=== PATIENT | female | born 1985 | race Hispanic/Latino ===

== ENCOUNTER → 2024-03-23 15:07 | Outpatient (CLI) | payer OTHER, SELFPAY ==
--- NOTE | 2024-03-23 15:08 | DI.US.S_ITS ---
PROCEDURE: US PELVIC COMPLETE INDICATIONS: Prior diagnosis uterine fibroids, menorrhagia TECHNIQUE: Real-time scanning was performed of the pelvic organs, with image documentation. Additional endovaginal scanning declined by the patient. COMPARISON: None. FINDINGS: Uterus: Uterus is anteverted and normal in size at 11.2 x 4.8 x 7.6 cm. The myometrium is heterogenous. The endometrium measures 4 mm in combined thickness. Multiple shadowing fibroids are present, which limit image quality with transabdominal examination. Ovaries: Not identified on the transabdominal images Other: No pathologic free abdominal or pelvic fluid. IMPRESSION: Limited evaluation of the uterus and ovaries on this transabdominal-only exam. We strive to produce accurate, complete, and clear reports of imaging services. To assist us in improving patient care, this report was composed using standard report templates and voice recognition software. Therefore, it may contain abnormal punctuation, insertions and/or omissions. Occasional wrong-word or sound-alike substitutions may occur. Though we review the report and make efforts to correct it, we do recommend that the report be read carefully in proper context to recognize any text inaccuracies. Dictated by: Shola Pham M.D. on 03/23/2024 at 16:18 Approved by: Shola Pham M.D. on 03/23/2024 at 16:20
== END ==
PROVIDERS: Referring Provider Obstetrics & Gynecology; Visit Provider Obstetrics & Gynecology
DX: N92.0 Excessive and frequent menstruation with regular cycle (principal); D25.9 Leiomyoma of uterus, unspecified
CPT/HCPCS: 76856

== ENCOUNTER 2024-05-06 08:21 | Day surgery (SDC) | payer OTHER, SELFPAY ==
[2024-04-26 09:11] VITALS: BMI 24.7
[2024-05-06] VITALS (10 sets, daily range): BP systolic 95–134; BP diastolic 50–80; PULSE 82–97; RESP 11–18; TEMP 36.2–37.1; O2SAT 96–98; BMI 24.7; BMI 27.6
[2024-05-06] MEDS: ACETAMINOPHEN 325 MG TABLET 975 MG PO (08:48)
[2024-05-06] MEDS: SCOPOLAMINE 1 PATCH TOP (08:49)
[2024-05-06] MEDS: LACTATED RINGERS 1,000 ML 42 ML IV (08:49)
--- NOTE | 2024-05-06 14:57 | SUR.OPER ---
Lithotomy on padded OR bed. Seminary Pad Positioner under torso. Head on pillow, arms padded and tucked at sides. Legs secured in padded yellow fins stirrups.
--- NOTE | 2024-05-06 14:58 | PM.PREOP ---
Pre-operative Note COVID-19 COVID-19 status: Not tested Interval Note History & Physical reviewed/Exam performed by Physician: Yes Changes to H&P: No
[2024-05-06] MEDS: CEFAZOLIN 2 GM/100 ML PREMIX 100 ML IV (15:15)
[2024-05-06] MEDS: BUPIVACAINE 0.25% W/ EPI 30 ML VIAL INJ (17:00)
[2024-05-06] MEDS: fentaNYL 100 MCG/2 ML INJ IV (19:10)
--- NOTE | 2024-05-06 19:10 | P.OP_ITS ---
Operative Date/Time/Diagnoses Date of procedure: 05/06/24 Time of procedure: 15:30 Pre-op diagnosis: Menorrhagia Uterine fibroids Post-op diagnosis: other (RYAN, incidental cystotomy) Procedure & Clinicians Procedure: Procedures Operation Date: 05/06/24 09:45 Actual Procedure Side Surgeon p Laparoscopic Total Hysterectomy with bilateral salpingectomy Basim Driscoll MD Indications: Tatiana is a 38-year-old LMP 02/09/2024 who presents with progressively heavy menses and uterine fibroids which have been documented for at least the last 3 or 4 years. Her most recent ultrasound in [place] about 2 months ago showed that 1 of her fibroids measures 7 x 7 x 6 cm with a 2nd submucous myoma measuring 2-1/2 cm. Her cycles are currently 28 days apart but she bleeds for 7-14 days with each menses and is anemic despite iron supplementation twice daily. In addition she has severe cramping with her period and extreme fatigue during her period as well as headaches. She has had births. Her last Pap was in 2022 and was normal with all prior Paps normal as well. She has no desire for future childbearing. A more recent pelvic ultrasound performed 03/23/2024 shows: PROCEDURE: US PELVIC COMPLETE INDICATIONS: Prior diagnosis uterine fibroids, menorrhagia TECHNIQUE: Real-time scanning was performed of the pelvic organs, with image documentation. Additional endovaginal scanning declined by the patient. COMPARISON: None. FINDINGS: Uterus: Uterus is anteverted and normal in size at 11.2 x 4.8 x 7.6 cm. The myometrium is heterogenous. The endometrium measures 4 mm in combined thickness. Multiple shadowing fibroids are present, which limit image quality with transabdominal examination. Ovaries: Not identified on the transabdominal images Other: No pathologic free abdominal or pelvic fluid. IMPRESSION: Limited evaluation of the uterus and ovaries on this transabdominal-only exam. Endometrial sampling performed 03/16/2024 shows only early secretory changes with no atypia, hyperplasia, or neoplasia noted. After discussion regarding all options for treatment/management of her menorrhagia and uterine fibroids, she has decided to proceed with total laparoscopic hysterectomy and bilateral salpingectomy. She presents today for her scheduled surgery.. Surgeon: Basim Driscoll Research And Development Specialist: Pita Rashid Anesthesia Type: General Operative Notes Findings: The uterus is 12-14 weeks in size with a large posterior myoma. Fallopian tubes and ovaries appeared normal. In the anterior cul-de-sac there were dense adhesions from prior section. The bladder was densely adherent to the lower uterine segment and cervix. During attempts to dissect it off the lower uterine segment a small transverse cystotomy was noted and repaired after urologic consultation. The remainder of the abdomen and pelvis were normal to inspection. Closure Type: primary Specimen(s): none, left tube, right tube and uterus Applied: catheter Estimated blood loss (mL): 150 Blood products transfused: none Procedure in detail: With the patient in modified dorsal lithotomy position preparations were made by prepping and draping the patient in usual manner for vaginal surgery and insertion of Covarrubias catheter. A pre-surgical time-out was then taken in accordance with [facility] policy. A bivalve speculum was then placed in the vagina and the cervix visualized. The anterior lip of the cervix was then grasped with a single-tooth tenaculum. The uterus was sounded to 8 cm, the endocervical canal dilated slightly, and a [employer] uterine manipulator with a medium colpotomy cup was placed. The umbilicus was then infiltrated with 0.5% Marcaine with epinephrine. A 1 cm umbilical incision was made transversely and a Veress needle was used to insufflate the abdominal cavity with carbon dioxide. Once the abdomen was appropriately insufflated, a 5 mm trocar and sleeve were then placed through the umbilical incision. The scope was placed through the trocar and the initial assessment of the intra-abdominal contents carried out. A 2nd and 3rd 5 mm port was then placed 1st in the right mid quadrant from then the left mid quadrant by infiltration of the skin and subcutaneous tissues, a 1 cm transverse incision and insertion of the 5 mm bladeless port. Using a 3 puncture technique, the abdomen and pelvis were inspected laparoscopy and photographically documented. Uterus is mobilized with the [employer]Care manipulator and attention turned to the left adnexa. The distal tube was then grasped and the fimbria varicose divided after coagulation with the PowerSeal device. The dissection was then carried out toward the cornua and the fallopian tube amputated. The tube was removed through a 5 mm port and dissection was then carried down using the PowerSeal device so as to divide the utero-ovarian ligament and the round ligament with blunt and sharp dissection of the broad down to the level of the uterine artery. The uterine artery was then skeletonized after development of a bladder flap, coagulated, and divided. Once hemostasis was assured on the left side attention was turned to the right and the tube, utero-ovarian ligament, round ligament, and broad ligament were dissected in a fashion exactly the same as it had been on the left. The right uterine artery was then visualized after skeletonization and coagulated and divided. The bladder was densely adherent to the right side of the WINIFRED and cervix/WINIFRED. Dissection from lateral to medial on the right resulted in disruption of bladder mucosa as there was no muscularis between the mucosa and the underlying myometrium. Once the defect was identified, intra-op urology consultation ([facility]) obtained and repair plan confirmed. The cystotomy was then repaired with two layers of 3-0 vicryl interrupted sutures. Sterile saline leak test up to 150-200 cc was negative. The uterus was seen to nati after coagulation of both uterine arteries and the cup was identified through the vaginal muscularis at its insertion with the body of the cervix. Circumferential excision of the vaginal cup was accomplished without difficulty using monopolar current and the uterus mobilized. The uterus was then removed through the vagina and the vaginal cuff closed [id number] with a series of 0 Vicryl [id number] stitches. Hemostasis was excellent, the abdomen was re- insufflated, and the pelvis inspected laparoscopically. The pelvis was inspected for any abnormality or bleeding, and the ureters were each seen to be peristalsing freely. With complete hemostasis assured, the pneumoperitoneum was vented and the ports removed. All of the 5 mm ports were then closed with 4-0 Monocryl on the skin using inverted interrupted sutures. Skin glue was placed and after the glue was dried, an appropriate dressing was applied. The case was then terminated, the patient awakened, and then transferred to PACU after having tolerated the procedure well. Complications: other (Incidental cystotomy with repair) Post-operative Condition: stable Disposition: PACU Plan for aftercare: Routine postoperative care. Patient will retain Covarrubias catheter for at least 3 weeks and then have cystogram performed with removal if cystogram shows bladder healing.
[2024-05-06] MEDS: hydrOXYzine 50 MG/ML INJ 25 MG IM (19:13)
[2024-05-06] MEDS: OXYCODONE IR 5 MG TABLET PO (19:17)
[2024-05-06] MEDS: LACTATED RINGERS 1,000 ML 100 ML IV (20:36)
[2024-05-06] MEDS: CEFAZOLIN VIAL 2 GM in SODIUM CHLORIDE 0.9% 100 ML IV (20:52)
[2024-05-06] MEDS: ACETAMINOPHEN 325 MG TABLET 650 MG PO (23:06)
[2024-05-06] MEDS: DOCUSATE 100 MG CAPSULE 200 MG PO (23:06)
--- NOTE | 2024-05-07 | PATH_ITS ---
[facility] Accession Number: [id number] No. of containers..01 Tissue . 01 Material submitted: . uterus - BILATERAL FALLOPIAN TUBES, UTERUS, CERVIX . 01 Diagnosis: UTERUS, CERVIX, BILATERAL FALLOPIAN TUBES, HYSTERECTOMY AND BILATERAL SALPINGECTOMY: Uterus with proliferative endometrium and fragmented leiomyomas. Histologically unremarkable cervix. Bilateral fimbriated fallopian tubes with benign paratubal cysts, otherwise unremarkable. Negative for malignancy. MRV 05/11/2024 1434 Local . 01 Electronically signed: . Georgie Ruiz DO, Pathologist NPI- [id number] . 01 Gross description: . Received in formalin, labeled with two patient identifiers and bilateral fallopian tubes, uterus, cervix, and consists of a 16.5 x 14.2 x 5.5 cm (398 g) aggregate of a fragmented uterus, detached cervix, and two detached fimbriated fallopian tubes. The cervix measures 3.2 x 2.5 x 1.5 cm and is surfaced by a smooth, white, glistening ectocervix. There is a 1.2 cm, slit-like, patent os. The endocervical canal is doyle, trabecular, and free of exophytic lesions. The fragmented uterus is partially surfaced by a smooth, white, glistening serosal surface. The myometrium is red-doyle and trabecular, measuring up to 1.1 cm in thickness with multiple white, whorled, well-circumscribed, fragmented nodules which, upon further sectioning, reveals no areas of cystic change or necrosis. The white, whorled nodules replace approximately 80% of the myometrial parenchyma. The fragmented endometrium is red-doyle, finely granular, and averages 0.3 cm in thickness. No mucosal abnormalities are appreciated on the endometrium. The first detached fimbriated fallopian tube measures 3.8 cm in length by 0.5 cm in diameter and has a smooth, doyle-pink serosal surface. Sectioning shows a 0.3 cm stellate lumen. The second detached fimbriated fallopian tube measures 4.1 cm in length by 0.5 cm in diameter and is surfaced by a doyle-purple, smooth, glistening serosal surface. Sectioning shows a 0.3 cm, unremarkable stellate lumen. Import Manager sections are submitted as follows: A1-A2: Cervix. A3-A4: Full-thickness endomyometrium. A5-A7: Myometrial nodules (four sections in each cassette). A8: Fallopian tube #1 to include entire fimbriated end. A9: Fallopian tube #2 to include entire fimbriated end. ([id number]) /KAYLYN 05/08/2024 0955 Local . 01 Pathologist provided ICD-10: D25.9 . 01 CPT . 822087 Specimen Comment: A courtesy copy of this report has been sent to [phone] Performed at: [address] [id number] MD Derrick Ames MD Phone: [phone]
[2024-05-07] MEDS: ONDANSETRON 4 MG/2 ML INJ IV (00:59)
[2024-05-07] MEDS: OXYCODONE IR 5 MG TABLET PO (00:59)
[2024-05-07 03:00] VITALS: BP 108/65; PULSE 85; RESP 18; TEMP 37.3; O2SAT 96
[2024-05-07 03:14] VITALS: BMI 27.6
--- NOTE | 2024-05-07 03:15 | PC.NURSE ---
Patient's primary language is English.
[2024-05-07 06:23] LABS: Add Manual Diff / Slide Review NO; Basophils Absolute Auto 0 /uL (0-100); Basophils Percent Auto 0.1 % (0-2); Eosinophils Absolute Auto 0 /uL (0-450); Hematocrit 30.8 % (36-46); Lymphocytes Absolute Auto 1600 /uL (1100-4500); Lymphocytes Percent Auto 10.5 % (25-40); Mean Corpuscular HGB Conc 32.5 % (30-36); Mean Corpuscular Hemoglobin 25.5 PG (26-34); Mean Corpuscular Volume 78.5 fL (80-100); Monocytes Absolute Auto 1000 /uL (0-900); Monocytes Percent Auto 6.5 % (3-14); Neutrophils Absolute Auto 12200 /uL (1500-7000); Neutrophils Percent Auto 82.9 % (50-75); Platelet Count 365 X10^3/uL (150-400); Red Blood Cell Count 3.93 X10^6/uL (4.0-5.2); Red Cell Distribution Width 14.5 % (11.6-14.8); White Blood Cell Count 14.8 X10^3/uL (4.5-11.0)
[2024-05-07 07:42] VITALS: BP 114/64; PULSE 78; RESP 19; TEMP 36.8; O2SAT 98
[2024-05-07] MEDS: ACETAMINOPHEN 325 MG TABLET 650 MG PO (08:56)
[2024-05-07] MEDS: DOCUSATE 100 MG CAPSULE 200 MG PO (10:13)
--- NOTE | 2024-05-07 11:45 | P.DS_ITS ---
History of Present Illness History of Present Illness Date Patient Seen: 05/07/24 Time Patient Seen: 11:46 Chief complaint: OPB Narrative: Tatiana is a 38-year-old LMP 02/09/2024 who presents with progressively heavy menses and uterine fibroids which have been documented for at least the last 3 or 4 years. Her most recent ultrasound in [place] about 2 months ago showed that 1 of her fibroids measures 7 x 7 x 6 cm with a 2nd submucous myoma measuring 2-1/2 cm. Her cycles are currently 28 days apart but she bleeds for 7-14 days with each menses and is anemic despite iron supplementation twice daily. In addition she has severe cramping with her period and extreme fatigue during her period as well as headaches. She has had births. Her last Pap was in 2022 and was normal with all prior Paps normal as well. She has no desire for future childbearing. A more recent pelvic ultrasound performed 03/23/2024 shows: PROCEDURE: US PELVIC COMPLETE INDICATIONS: Prior diagnosis uterine fibroids, menorrhagia TECHNIQUE: Real-time scanning was performed of the pelvic organs, with image documentation. Additional endovaginal scanning declined by the patient. COMPARISON: None. FINDINGS: Uterus: Uterus is anteverted and normal in size at 11.2 x 4.8 x 7.6 cm. The myometrium is heterogenous. The endometrium measures 4 mm in combined thickness. Multiple shadowing fibroids are present, which limit image quality with transabdominal examination. Ovaries: Not identified on the transabdominal images Other: No pathologic free abdominal or pelvic fluid. IMPRESSION: Limited evaluation of the uterus and ovaries on this transabdominal-only exam. Endometrial sampling performed 03/16/2024 shows only early secretory changes with no atypia, hyperplasia, or neoplasia noted. After discussion regarding all options for treatment/management of her menorrhagia and uterine fibroids, she has decided to proceed with total laparoscopic hysterectomy and bilateral salpingectomy. She presents today for her scheduled surgery. Discharge Providers Provider Date of admission: 05/06/2024 Discharge Date: 05/07/24 Discharge provider: Basim Driscoll MD Summary Hospital Course Discharge Diagnosis: Menometrorrhagia Submucous uterine fibroid Status post total laparoscopic hysterectomy with bilateral salpingectomy Repair of incidental cystotomy during hysterectomy Hospital Course: Tatiana was admitted on 05/06/2024 and underwent total laparoscopic hysterectomy with bilateral salpingectomy complicated by incidental cystotomy related to severe scarring prior section. Full details of the procedure well summarized on my operative note of 05/06/2024. Following surgery, the patient has done very well with prompt return of bowel function, she is ambulating independently, tolerating regular diet, and her pain is well controlled with oral pain medications. Her Covarrubias catheter is draining well and the urine, which had been blood-tinged following the surgery, is now clear. She will be discharged at this time to home after counseling regarding precautionary symptoms, limitations of activity, medications, plans for follow-up, and instructions on managing both her leg bag as well as the nighttime Covarrubias. Medications at discharge will include resumption of all preadmission medications, oxycodone 5 mg every 4-6 hours as needed for pain, dispense 10, Cipro 500 mg p.o. b.i.d. x5 days followed by Macrobid 100 mg p.o. q.d. for UTI prophylaxis with indwelling Covarrubias. Exam Vital Signs (past 8 hours): - 05/07/24 07:42 Temperature 98.3 F Pulse Rate 78 Respiratory Rate 19 Blood Pressure 114/64 Pulse Oximetry 98 Oxygen Flow Rate 0 Oxygen Delivery Method Room Air Oxygen Flow Rate 0 Const General: cooperative and comfortable Nutritional Appearance: average body habitus Orientation: alert and oriented x3 HENMT Head: normal to inspection, atraumatic and abrasion Ears: hearing grossly normal bilaterally Face and sinus: face symmetric Eyes General: appearance normal, both eyes and all related structures Conjunctivae: conjunctivae normal Sclera: sclerae normal EOM: EOM intact bilaterally Neck Neck: normal visual inspection Resp Effort & Inspection: normal respiratory effort and able to speak in complete sentences Auscultation: clear to auscultation bilaterally Cardio Rate: regular rate Rhythm: regular rhythm Heart Sounds: S1 normal, S2 normal and no murmurs GI Inspection: normal to inspection and incision (Surgical dressings clean and dry) Palpation: soft, no hepatosplenomegaly and tender (Mild, diffuse postsurgical tenderness) Auscultation: normal bowel sounds External Female Exam: other (No significant bleeding noted) Extrem General: no calf tenderness Psych Appearance: grossly normal Mental Status: mental status grossly normal Speech and Movement: speech and movement normal Mood: congruent mood Affect: normal affect Attitude: cooperative Thought Process: normal Thought Content: normal Judgment: judgment good Objective Labs 05/07/24 05:50 Labs: Laboratory Results - last 24 hr 05/07/24 05:50 WBC 14.8 H RBC 3.93 L Hgb 10.0 L Hct 30.8 L MCV 78.5 L MCH 25.5 L MCHC 32.5 RDW 14.5 Plt Count 365 Neut % (Auto) 82.9 H Lymph % (Auto) 10.5 L Maries % (Auto) 6.5 Eos % (Auto) 0.0 L Baso % (Auto) 0.1 Neut # (Auto) 69585 H Lymph # (Auto) 1600 Maries # (Auto) 1000 H Eos # (Auto) 0 Baso # (Auto) 0 PFSH Medical History (Updated 04/26/24 @ 09:18 by Leda Martin RN) Anemia Uterine fibroid Menorrhagia with regular cycle Surgical History (Updated 04/26/24 @ 09:16 by Leda Martin RN) History of 2 sections Social History household members: spouse and children Smoking Status: Never smoker alcohol intake: current Discharge Assessment & Plan Assessment and Plan Assessment: Menometrorrhagia Submucous uterine fibroid Status post total laparoscopic hysterectomy with bilateral salpingectomy Repair of incidental cystotomy during hysterectomy Plan of Treatment: Patient will have indwelling Covarrubias x3 weeks with plans for discontinuation following cystogram. Postop follow-up in office will be in 2 weeks or as needed. Discharge Plan Discharge Plan Patient Disposition: Home Provider Discharge Comment: Please review the written instructions you received when you were discharged from the hospital. Your follow-up will be scheduled for 2 weeks after your surgery and I look forward to seeing you then. If however in the meanwhile you have any issues, concerns, or questions, please contact me either by phone at [phone], or via the patient portal. Discharge orders & Medications Discharge Orders: Discharge (Order); Ordered 05/07/24 Ordered By: Basim Driscoll Prescriptions: No Action nitrofurantoin monohyd/m-cryst [Macrobid] 100 mg capsule 100 mg PO DAILY Qty: 20 0RF Rx Instructions: Start after completing ciprofloxacin; must administer with a meal/food Medication counseling provided by Pharmacist: No Follow up/Referrals: Basim Driscoll MD [Physician] - Diet/Activity/Treatments Diet: Diet as Tolerated Activity: As tolerated Catheter comment: Covarrubias catheter will need to remain in place for at least 3 weeks. Other treatments: Uawd-nlk-ncjmkpk Tylenol and/or ibuprofen may be used for additional pain relief. Qkoz-qcc-xzajwvw stool softeners and/or MiraLax may be used as needed for constipation. Skin/Wound/Dressing Care Report to your healthcare provider any signs of infection, such as:: chills, fever, increased pain, unusual drainage and unusual redness Dressing: Dressings should be removed on the morning of 05/08/2024 Visit Report/Discharge Packet Instructions: DI for Hysterectomy, DI for Laparoscopy, How to Care for Your Covarrubias Catheter -- Female, DI for Prescription Opioid Use Stand Alone Forms: Surgery Discharge Print Language: Citizen Of [place] Discharge Data Attending Provider: Basim Driscoll VTE Deep Vein Thrombosis/Pulmonary Embolism Present on Admission: No IH PROFEE Charge Codes Discharge inpatient/observation: [id number]
--- NOTE | 2024-05-07 12:06 | PC.NURSE ---
Patient is going to go home with her xiao catheter for three weeks and we will do leg bag teaching and xiao catheter teaching with her. She has three allevyn sites that are all cdi, and her belly button dressing has gauze that is cdi. Patient up to ambulate in her room and she did well. Xiao bag emptied with 1200cc of clear and yellow urine. She has only been taking tylenol for her discomfort and is helpful at bedside. Patient is going to be discharged soon.
--- NOTE | 2024-05-07 12:27 | CM.DANOTE ---
B DCP Assessment Note pt is a 38yo F POD1 lap hysterectomy with Dr. Driscoll. PCP none listed. Payer Burak Preferred PROJECT DEVELOPMENT DIRECTOR reviewed EMR. per chart, pt lives in [place] with spouse and children. primarily Maltese speaking. Per RN, pt ambulating indep in room, pain well controlled, family at bedside. no obvious CM needs. Per chart, cleared to dc home with OP f/u. P: pt to dc home with OP f/u and family support today, transport with family in POV. no identified barriers to safe dc home at this time, will continue to follow as needed FROYLAN Zapata Discharge Planning/Care Management CM Discharge Assessment Start: 05/07/24 12:25 Freq: Status: Active Protocol: Document 05/07/24 12:25 (Rec: 05/07/24 12:26 [id number]) Discharge Planning Assessment Assigned Dealership Manager FROYLAN Nowak DPOA/Assigned Designee Name Brian Jones, spouse Contact Information [phone] Advance Directives? No History Provided By Patient,Family Member,Medical Record Prior Living Arrangements House Household Members spouse,children Type of transporation used prior to Drives own vehicle admit Independent with ADL's Yes Is patient alert and oriented? Yes Barriers to Discharge No Discharge Plan Home Transportation Arrangement family in POV Referrals Initiated None needed Review Status In Process Please Provide Date Initial DC 05/07/24 Assessment Was Performed Next Review Type Continued Stay Review Pre-Anesthesia Assessment Start: 04/26/24 09:11 Freq: Status: Complete Protocol: Document 04/26/24 09:11 CAB (Rec: 04/26/24 09:19 CAB [id number]) Pre-Anesthesia Assessment PAC Comment Surgeon visits x 2 only source of medical/medication history , very limited chart review Patient Information Reviewed Via Chart Review Seen Specialist in Last 12 Months Yes Specialist Seen Psychologist Social Primary Language [place] Islander Height 170.18 cm Weight 71.668 kg Body Mass Index (BMI) 24.7 Anesthesia Review Requested No Sterile Supply Technician No Smoking Status Never smoker History of Falling (Recent or History of No ) Patient is completely paralyzed or No completely immobile Mental Status Oriented to own ability Is patient on oxygen? No Hx Sleep Apnea No Currently Taking a Beta Sid No Anti-Coagulant Therapy No Has a Neighborhood Conservation Officer No Cardiac Testing No Hx Pacemaker/ICD No Pacemaker Rep Required? No Cardiac Clearance Received No Urinary Catheter Present No Hx Urinary Self Catheterization No Diabetes No Patient No Lactating No Marital Status Lives With spouse,children Patient Discharge Plan Description Return Home
== END 2024-05-07 13:30 | disposition home or self-care (01) ==
LOC: OR 08:21 → AC 08:22
PROVIDERS: Referring Provider Obstetrics & Gynecology; Visit Provider Obstetrics & Gynecology
PROC: 0UT94ZZ Resection of Uterus, Percutaneous Endoscopic Approach (ICD-10-PCS; CPT 58571; principal; 2024-05-06 09:45)
DX: N92.0 Excessive and frequent menstruation with regular cycle (principal); D64.9 Anemia, unspecified; D25.9 Leiomyoma of uterus, unspecified; N73.6 Female pelvic peritoneal adhesions (postinfective); N83.8 Other noninflammatory disorders of ovary, fallopian tube and broad ligament
CPT/HCPCS: 58571; 36415; 81025; 85025; J0330; J0690; J1100; J1171; J2250; J2405; J2704; J3010; J3410; J3490

== ENCOUNTER → 2024-05-31 13:11 | Outpatient (CLI) | payer OTHER, SELFPAY ==
[2024-05-07 03:14] VITALS: BMI 27.6
--- NOTE | 2024-05-31 13:12 | DI.RAD.S_ITS ---
PROCEDURE: FL CYSTOGRAM INDICATIONS: Cystotomy during hysterectomy 05/06/2024 COMPARISON: None. FINDINGS: KUB: Preprocedural business lawyer film demonstrates a normal bowel gas pattern. A Covarrubias catheter is present. No suspicious abdominal calcifications. Bony structures are unremarkable. Bladder: The filled bladder appears normal in contour. Early images demonstrate no bladder wall trabeculations. No vesicoureteral reflux or contrast extravasation. Postvoid: No significant postvoid residual. IMPRESSION: No evidence of bladder leak. Dictated by: Alisha Grover M.D. on 05/31/2024 at 16:21 Approved by: Alisha Grover M.D. on 05/31/2024 at 16:21
== END ==
PROVIDERS: Referring Provider Obstetrics & Gynecology; Visit Provider Obstetrics & Gynecology
DX: N99.81 Other intraoperative complications of genitourinary system (principal)
CPT/HCPCS: 51600; 74430; Q9958

== ENCOUNTER → 2025-02-02 09:14 | Outpatient (CLI) | payer OTHER, SELFPAY ==
--- NOTE | 2025-02-02 09:17 | DI.MG.S_ITS ---
MM screening mammo BI: 02/02/2025. BI-RADS: 1 CLINICAL: 39-year old female for bilateral screening mammogram. Tyrer-Cuzick lifetime risk of 11.0%. No personal or first-degree family history of breast cancer. PRIOR EXAMS: None. This is a baseline mammogram. MAMMOGRAPHY TECHNIQUE: 2D and 3D (tomosynthesis) digital mammographic views obtained, with additional images as needed for full coverage. Current study was also evaluated with a Computer Aided Detection (CAD) system. DENSITY C. The breasts are heterogeneously dense, which may obscure small masses. MAMMOGRAPHY FINDINGS Bilateral: No suspicious mass, asymmetry, microcalcification, or other abnormality seen. IMPRESSION: * No evidence of malignancy. RECOMMENDATIONS Bilateral * Annual screening mammography. OVERALL ASSESSMENT CATEGORY BI-RADS-1: Negative. [employer] recommends annual screening mammography beginning at age 40 for women with average risk of breast cancer. ELECTRONICALLY SIGNED: Socorro Ray M.D. on 02/02/2025 at 02:51:40 PM PT Interpreting Station ID: [id number]
== END ==
LOC: MAMMO 09:17
DX: Z12.31 Encounter for screening mammogram for malignant neoplasm of breast (principal); R92.333 Mammographic heterogeneous density, bilateral breasts
CPT/HCPCS: 77063; 77067